=== PATIENT | male | born 1975 | race Caucasian/White ===

== ENCOUNTER → 2017-08-23 | Outpatient (CLI) | payer MEDICARE, OTHER ==
[~2017-08-23] MED LIST: AMPDEX10; AMPDEX5 PO; DULO30 PO; GABA400; HYDACE5 PO; HYDACE7.5 PO; SERT25; SULTRIDS PO; [UNRECOGNIZED DRUG - OTHER]
[2017-08-23 15:44] LABS: U Amphetamine Screen DETECTED; U Barbituate Screen Not Detected; U Benzodiazapine Screen Not Detected; U Buprenorphine Screen Not Detected; U Cannabinoids Screen DETECTED; U Cocaine Screen Not Detected; U Methadone Screen Not Detected; U Methamphetamine Screen Not Detected; U Opiates Screen Not Detected; U Oxycodone Screen Not Detected; U Phencyclidine Screen Not Detected; U Propoxyphene Screen Not Detected
== END ==
LOC: LAB SHORT 11:50 → LAB 11:50
PROVIDERS: Psychiatry & Neurology Psychiatry
DX: Z51.81 Encounter for therapeutic drug level monitoring (principal); Z79.899 Other long term (current) drug therapy

== ENCOUNTER → 2017-10-09 | Outpatient (CLI) | payer MEDICARE, OTHER | LOC: LAB 09:41 → LAB SHORT 09:41 | PROVIDERS: Nurse Practitioner | DX: L30.9 Dermatitis, unspecified (principal) | CPT/HCPCS: 86592; 86695; 86696 ==

== ENCOUNTER 2018-07-14 18:28 | Emergency (ER) | payer MEDICARE, OTHER ==
[~2018-07-14] VITALS: Ht 190.5 cm; Wt 134.7 kg
[2018-07-14] MEDS ORDERED: Venlafaxine HCl75 MG PO (18:51)
[2018-07-14] MEDS ORDERED: HYDCHL25 PO (18:51)
[2018-07-14] MEDS ORDERED: AMPDEX30CR (18:51)
[2018-07-14] MEDS ORDERED: Norco 5-325 Ta1 EACH PO (20:40)
[2018-07-14] MEDS ORDERED: Naprosyn500 MG PO (20:48)
== END 2018-07-14 20:56 | disposition home or self-care (01) ==
LOC: ER 18:28
DX: S52.121A Displaced fracture of head of right radius, initial encounter for closed fracture (principal); I10 Essential (primary) hypertension; F32.9 Major depressive disorder, single episode, unspecified; Z79.899 Other long term (current) drug therapy; W19.XXXA Unspecified fall, initial encounter
CPT/HCPCS: 73060; 73070; 73090

== ENCOUNTER → 2018-07-18 | Outpatient (CLI) | payer MEDICARE, OTHER ==
[~2018-07-18] MED LIST changes: +AMPDEX30CR; +HYDCHL25 PO; +Naprosyn500 MG PO; +Norco 5-325 Ta1 EACH PO; +Venlafaxine HCl75 MG PO
== END | disposition home or self-care (01) ==
LOC: LAB EV 10:53 → LAB SHORT 10:53
DX: N48.1 Balanitis (principal); R30.0 Dysuria
CPT/HCPCS: 87086

== ENCOUNTER 2018-09-24 06:57 | Day surgery (SDC) | payer MEDICARE, OTHER ==
[~2018-09-24] VITALS: Ht 189 cm; Wt 126.8 kg
[~2018-09-24 06:57] MED LIST changes: -AMPDEX30CR; +AMPDEX30CR PO
--- NOTE | 2018-09-24 08:12 | NUR ---
History, Chart, Medications and Allergies reviewed before start of procedure. Lungs clear T/O to Auscultation. Patient confirms NPO status and agrees with scheduled surgery. Patient reports completing Chlorhexadine shower X2 prior to admission to hospital.
--- NOTE | 2018-09-24 08:26 | NUR ---
PT HAS AN AREA TO LQ ABD THAT IS REDDENED. PT REPROTS SMALL "PIMP" LIKE THAT HE SQUEEZS ABOUT 5 DAYS. STATES WAS VERY RED BUT IS IMPROVING.
--- NOTE | 2018-09-24 10:01 | NUR ---
09/24/18 Noe1 Ingris Lew 3-4 INCH RASH ON LT LOWER ABDOMEN, SPOKE WITH DAY SURGERY NURSE AND SHE STATED IT WAS THERE UPON ARRIVAL,SURGEON DID SEE THE RASH.
--- NOTE | 2018-09-24 13:28 | NUR ---
DR CRESPO CAME IN AND SPOKE TO PATIENT AND . STERI STRIPS IN PLACE CDI X 4 INCISIONS. APPLIES WARM COMPRESS TO RUQ AND R SHOULDER. REPORT TO JESSICA SYLVESTER.
== END 2018-09-25 22:56 | disposition home or self-care (01) ==
LOC: ORSCMMR 06:57 → ORD 08:30 → ORSCMMR 08:30
PROVIDERS: Surgery
PROC: BF131ZZ Fluoroscopy of Gallbladder and Bile Ducts using Low Osmolar Contrast (ICD-10-PCS; principal; 2018-09-24 08:30)
PROC: 0FT44ZZ Resection of Gallbladder, Percutaneous Endoscopic Approach (ICD-10-PCS; principal; 2018-09-24 08:30)
DX: K80.10 Calculus of gallbladder with chronic cholecystitis without obstruction (principal); I10 Essential (primary) hypertension; E66.9 Obesity, unspecified; Z68.35 Body mass index [BMI] 35.0-35.9, adult; K21.9 Gastro-esophageal reflux disease without esophagitis; R73.03 Prediabetes; Z79.899 Other long term (current) drug therapy
CPT/HCPCS: 74300; 88304; A9270-GY; C1729; J0690; J1100; J1885; J2250; J2370; J2405; J2704; J2710; J2765; J3010; J7030; J7120

== ENCOUNTER → 2018-11-03 | Outpatient (CLI) | payer MEDICARE, OTHER ==
[2018-11-03 18:52] LABS: U Amphetamine Screen DETECTED; U Barbituate Screen Not Detected; U Benzodiazapine Screen Not Detected; U Buprenorphine Screen Not Detected; U Cannabinoids Screen DETECTED; U Cocaine Screen Not Detected; U Methadone Screen Not Detected; U Methamphetamine Screen Not Detected; U Opiates Screen Not Detected; U Oxycodone Screen Not Detected; U Phencyclidine Screen Not Detected; U Propoxyphene Screen Not Detected
== END | disposition home or self-care (01) ==
LOC: LAB SRC 13:20 → LAB SHORT 13:20
PROVIDERS: Psychiatry & Neurology Psychiatry
DX: Z51.81 Encounter for therapeutic drug level monitoring (principal); F90.0 Attention-deficit hyperactivity disorder, predominantly inattentive type; Z79.899 Other long term (current) drug therapy

== ENCOUNTER → 2019-04-06 | Outpatient (CLI) | payer MEDICARE, OTHER | END | disposition home or self-care (01) | LOC: PLD 07:47 → LAB SHORT 07:47 | DX: L82.1 Other seborrheic keratosis (principal); L73.8 Other specified follicular disorders | CPT/HCPCS: 88305; 88312 ==

== ENCOUNTER → 2019-05-25 | Outpatient (CLI) | payer MEDICARE, OTHER ==
[2019-05-25 18:54] LABS: U Amphetamine Screen DETECTED; U Barbituate Screen Not Detected; U Benzodiazapine Screen Not Detected; U Buprenorphine Screen Not Detected; U Cannabinoids Screen DETECTED; U Cocaine Screen Not Detected; U Methadone Screen Not Detected; U Methamphetamine Screen Not Detected; U Opiates Screen Not Detected; U Oxycodone Screen Not Detected; U Phencyclidine Screen Not Detected; U Propoxyphene Screen Not Detected
== END | disposition home or self-care (01) ==
LOC: LAB SRC 15:22 → LAB SHORT 15:22
PROVIDERS: Psychiatry & Neurology Psychiatry
DX: F90.0 Attention-deficit hyperactivity disorder, predominantly inattentive type (principal); Z79.899 Other long term (current) drug therapy

== ENCOUNTER 2019-10-30 19:46 | Emergency (ER) | payer MEDICARE, OTHER ==
[~2019-10-30] VITALS: Ht 190.5 cm; Wt 122.5 kg
[~2019-10-30 19:46] MED LIST changes: -DULO30 PO; +DULO60 PO
[2019-10-30 20:14] LABS: BASOPHILS ABSOLUTE AUTO 0.06 K/mm3 (0.00-0.23); BASOPHILS PERCENT AUTO 1 % (0-2); EOSINOPHILS ABSOLUTE AUTO 0.16 K/mm3 (0.00-0.68); EOSINOPHILS PERCENT AUTO 1 % (0-6); Hematocrit 52.2 % (37.0-53.0); Hemoglobin 17.7 g/dL (13.5-17.5); IMMATURE GRAN ABSOLUTE AUTO 0.06 K/mm3 (0.00-0.10); IMMATURE GRAN PERCENT AUTO 1 % (0-1); LYMPHOCYTES ABSOLUTE AUTO 5.09 K/mm3 (0.84-5.20); LYMPHOCYTES PERCENT AUTO 45 % (21-46); MONOCYTES ABSOLUTE AUTO 0.78 K/mm3 (0.16-1.47); MONOCYTES PERCENT AUTO 7 % (4-13); Mean Corpuscular HGB 30.4 pg (26.0-34.0); Mean Corpuscular HGB Conc 33.9 g/dL (31.5-36.5); Mean Corpuscular Volume 90 fL (80-100); Mean Platelet Volume 9.5 fL (9.1-12.4); NEUTROPHILS ABSOLUTE AUTO 5.29 K/mm3 (1.96-9.15); NEUTROPHILS PERCENT AUTO 46 % (41-73); Platelet Count 397 K/mm3 (150-400); RDW Coefficient Variation 12.1 % (11.7-14.2); Red Blood Cell Count 5.82 M/mm3 (4.30-5.90); White Blood Cell Count 11.44 K/mm3 (4.00-11.30)
[2019-10-30 20:32] LABS: Alanine Aminotransfer (ALT/SGP 32 U/L (12-78); Albumin, Blood 3.6 g/dL (3.4-5.0); Alk Phos 88 U/L (50-136); Anion Gap 9 mmol/L (6-16); Aspartate Aminotrans (AST/SGOT 15 U/L (12-37); Bilirubin, Total 0.7 mg/dL (0.1-1.0); Blood Urea Nitrogen 10 mg/dL (8-24); Bun/Creatinine Ratio 9.9 (12.0-20.0); CO2, Blood 21 mmol/L (21-32); Calcium, Blood 8.3 mg/dL (8.5-10.1); Chloride, Blood 107 mmol/L (98-108); Creatinine, Blood 1.01 mg/dL (0.60-1.20); Globulin, Blood 3.7 g/dL (2.2-4.0); Glomerular Filtration Rate >60 (60-); Glucose, Blood 163 mg/dL (70-99); Potassium, Blood 3.5 mmol/L (3.5-5.5); Sodium, Blood 137 mmol/L (136-145); Total Protein, Blood 7.3 g/dL (6.4-8.2)
== END 2019-10-30 21:34 | disposition short-term general hospital (02) ==
LOC: ER 19:46
PROVIDERS: Emergency Medicine
DX: S31.114A Laceration without foreign body of abdominal wall, left lower quadrant without penetration into peritoneal cavity, initial encounter (principal); I95.9 Hypotension, unspecified; Z90.49 Acquired absence of other specified parts of digestive tract; I10 Essential (primary) hypertension; F32.9 Major depressive disorder, single episode, unspecified; X99.1XXA Assault by knife, initial encounter
CPT/HCPCS: 36415; 74177; 80053; 83690; 85025; 86850; 86900; 86901; 86923; 96361; 96374; 96375; 99285-25; J2270; J2405; J7030; P9016; Q9967; U0002

== ENCOUNTER → 2020-03-14 | Outpatient (CLI) | payer MEDICARE, OTHER ==
[2020-03-14 18:22] LABS: U Amphetamine Screen DETECTED; U Barbituate Screen Not Detected; U Benzodiazapine Screen Not Detected; U Cocaine Screen Not Detected; U Methadone Screen Not Detected; U Methamphetamine Screen Not Detected; U Opiates Screen Not Detected; U Phencyclidine Screen Not Detected
[2020-03-14 18:23] LABS: U Buprenorphine Screen Not Detected; U Cannabinoids Screen DETECTED; U Oxycodone Screen Not Detected; U Propoxyphene Screen Not Detected
== END | disposition home or self-care (01) ==
LOC: LAB SHORT 13:03 → LAB SRC 13:03 → LAB FUT 03-02 12:45
PROVIDERS: Psychiatry & Neurology Psychiatry
DX: F90.0 Attention-deficit hyperactivity disorder, predominantly inattentive type (principal)

== ENCOUNTER 2023-07-12 08:13 | Emergency (ER) | payer MEDICARE, OTHER ==
[~2023-07-12] VITALS: Ht 190.5 cm; Wt 125.2 kg
[2023-07-12] MEDS ORDERED: DULO30 PO (08:52)
[2023-07-12] MEDS ORDERED: METHYLPHENIDATE20 MG PO (08:53)
[2023-07-12] MEDS ORDERED: QUETIAPINE FUM10011 PO (08:53)
[2023-07-12] MEDS ORDERED: JARDIANCE25 MG PO (08:54)
[2023-07-12] MEDS ORDERED: NS 1,000 ML IV SCH (09:20)
[2023-07-12 09:23] LABS: BASOPHILS ABSOLUTE AUTO 0.04 K/mm3 (0.00-0.23); BASOPHILS PERCENT AUTO 0 % (0-2); EOSINOPHILS ABSOLUTE AUTO 0.05 K/mm3 (0.00-0.68); EOSINOPHILS PERCENT AUTO 1 % (0-6); Hemoglobin 19.1 g/dL (13.5-17.5); IMMATURE GRAN ABSOLUTE AUTO 0.05 K/mm3 (0.00-0.10); IMMATURE GRAN PERCENT AUTO 1 % (0-1); LYMPHOCYTES ABSOLUTE AUTO 3.01 K/mm3 (0.84-5.20); LYMPHOCYTES PERCENT AUTO 30 % (21-46); MONOCYTES ABSOLUTE AUTO 1.02 K/mm3 (0.16-1.47); MONOCYTES PERCENT AUTO 10 % (4-13); Mean Corpuscular HGB 29.8 pg (26.0-34.0); Mean Corpuscular HGB Conc 35.4 g/dL (31.5-36.5); Mean Corpuscular Volume 84 fL (80-100); Mean Platelet Volume 9.7 fL (9.1-12.4); NEUTROPHILS ABSOLUTE AUTO 5.73 K/mm3 (1.96-9.15); NEUTROPHILS PERCENT AUTO 58 % (41-73); Platelet Count 314 K/mm3 (150-400); RDW Coefficient Variation 12.7 % (11.7-14.2)
[2023-07-12] MEDS ORDERED: Ketorolac Tromethamine 15mg Vial IV ONE (09:30)
[2023-07-12 09:36] LABS: Albumin, Blood 3.6 g/dL (3.4-5.0); Albumin/Globulin Ratio 0.8 (0.8-1.8); Bilirubin, Total 1.4 mg/dL (0.1-1.0); Calcium, Blood 9.4 mg/dL (8.5-10.1); Globulin, Blood 4.4 g/dL (2.2-4.0); Magnesium, Blood 2.7 mg/dL (1.6-2.4); Potassium, Blood 3.5 mmol/L (3.5-5.5)
[2023-07-12 11:15] VITALS: BP 142/98
[2023-07-12] MEDS ORDERED: ONDA4ODT MM (11:30)
== END 2023-07-12 11:35 | disposition home or self-care (01) ==
LOC: ER 08:13
PROVIDERS: Physician Assistant
DX: R10.11 Right upper quadrant pain (principal); Z79.899 Other long term (current) drug therapy; I10 Essential (primary) hypertension; E11.9 Type 2 diabetes mellitus without complications
CPT/HCPCS: 74177; 80053; 83690; 83735; 85025; 96361; 96374-59; 99284-25; J1885; J7030; Q9967

== ENCOUNTER 2024-03-29 09:37 | Emergency (ER) | payer MEDICARE, OTHER ==
[~2024-03-29] VITALS: Ht 190.5 cm; Wt 122.5 kg
[~2024-03-29 09:37] MED LIST changes: +DULO30 PO; +JARDIANCE25 MG PO; +METHYLPHENIDATE20 MG PO; +ONDA4ODT MM; +QUETIAPINE FUM10011 PO
[2024-03-29 10:14] VITALS: BP 138/102
[2024-03-29] MEDS ORDERED: Amoxicillin500 MG PO (10:19)
[2024-03-29] MEDS ORDERED: HYDR1TAB94 PO (10:19)
== END 2024-03-29 10:20 | disposition home or self-care (01) ==
LOC: ER 09:37
DX: K04.7 Periapical abscess without sinus (principal); I10 Essential (primary) hypertension; Z79.899 Other long term (current) drug therapy
CPT/HCPCS: 99282